=== PATIENT | female | born 1990 | race Caucasian/White ===

== ENCOUNTER 2016-12-28 08:37 | Emergency (ER) | payer MEDICAID, OTHER ==
[~2016-12-28] VITALS: Ht 162.6 cm; Wt 40.0 kg
[2016-12-28 08:38] VITALS: BP 111/78; PULSE 88; RESP 16; TEMP 97.9; O2SAT 98
--- NOTE | 2016-12-28 08:52 | PD ---
HPI . lower back pain since yesterday Chief Complaint: Injury Time Seen by Provider: 08:52 Travel History International Travel<30 days: No Contact w/Intl Traveler<30days: No Traveled to known affect area: No History of Present Illness HPI 26-year-old female here with complaints of lower back pain status post fall yesterday while [place] the beach. Patient says she was trying to walk the beach when she actually fell down and hit her lower back. She is now complaining of pain and the end of the T-spine early L spine. She says the pain is sharp/ aching and rated as 8/10. She has not tried any over the counter medications. She she denies any bowel or bladder dysfunction. She has no saddle anesthesia. She is accompanied by her significant other [facility] Past Medical History Medical History: Denies Significant Hx ?: Unknown LMP: 12/18/16 : 2 Para: 2 Miscarriage: 0 : 0 Social History Alcohol Use: Yes Tobacco Use: Yes (1 cig/daily) Substance Use: No Allergies-Medications (Allergen,Severity, Reaction): Coded Allergies: No Known Allergies (Verified , 09/27/13) Reported Meds & Prescriptions Reported Meds & Active Scripts Active Percocet (Oxycodone-Acetaminophen) 5-325 mg Tab 1-2 Tab PO Q6H PRN Review of Systems General / Constitutional: No: Fever Eyes: No: Visual changes HENT: No: Headaches Cardiovascular: No: Chest Pain or Discomfort Respiratory: No: Shortness of Breath Gastrointestinal: No: Abdominal Pain Genitourinary: No: Dysuria Musculoskeletal: Positive: Pain (low back pain) Skin: No Rash Neurologic: No: Weakness Psychiatric: No: Depression Endocrine: No: Polydipsia Hematologic/Lymphatic: No: Easy Bruising Physical Exam Narrative GENERAL: AAO x 3, no acute distress, Well-nourished, well-developed patient. SKIN: Warm and dry. No visible rashes or bruising. no visible bruising HEAD: Normocephalic and atraumatic. EYES: No scleral icterus. No injection or drainage. ENT: No nasal drainage noted. Mucous membranes pink. Airway patent. NECK: Supple, trachea midline. No JVD. CARDIOVASCULAR: Regular rate and rhythm without murmurs, gallops, or rubs. RESPIRATORY: Breath sounds equal bilaterally. No accessory muscle use. No rhonchi or rales. GASTROINTESTINAL: Abdomen soft, non-tender, nondistended. EXTREMITIES: No cyanosis or edema. SLR negative b/l BACK: No obvious deformity. No CVA tenderness. There is tenderness at the end of t spine and early l spine. No paraspinal tenderness. NEURO: CN II through XII grossly intact. Strength is normal bilaterally in the lower extremities. PSYCH: AAO x 3, normal affect. Data Data Last Documented VS Vital Signs Date Time Temp Pulse Resp B/P Pulse Ox O2 Delivery O2 Flow Rate FiO2 12/28/16 08:38 97.9 88 16 111/78 98 Room Air Orders Ketorolac Inj (Toradol Inj) (12/28/16 09:00) Spine, Thoracic-Ap/Lat/Sw(3vw) (12/28/16 08:54) [employer] Request For Service (12/28/16 10:11) Oxycodone-Acetamin 5-325 Mg (Percocet (12/28/16 10:15) MDM Medical Decision Making Medical Screen Exam Complete: Yes Emergency Medical Condition: Yes Medical Record Reviewed: Yes Differential Diagnosis Lumbago, spinal fracture, less likely cauda equina Narrative Course This is a 26-year-old female presenting status post fall now with pain in the end of the T-spine early L spine. There is some significant spinal process tenderness on examination. I will go ahead and check an x-ray to rule out any type of bony abnormality. Last Impressions Thoracic Spine X-Ray 12/28/16 0854 Signed Impressions: Service Date/Time: Wednesday, December 28, 2016 09:14 - CONCLUSION: L1 compression fracture. Mehran Herrera MD At 9:40 AM call was placed to interventional radiology to see if they would be able to perform a kyphoplasty. Otherwise patient will be discharged to [facility] brace and follow-up as an outpatient. discussed with Dr. Bharati Pereyra. He will determine the disposition. [id number]: spoke with Dr. Pandey; he recommends discharge and conservative management. I discussed with the patient and recommended outpatient f/u with her PCP. Patient verbalized understanding of instructions, questions were answered, and thanked me for their care. I advised them if their condition worsens, please return to the nearest emergency room for further care. Diagnosis Primary Impression: Compression fracture of lumbar vertebra Qualified Code: S32.000A - Compression fracture of lumbar vertebra, closed, initial encounter Patient Instructions: General Instructions, Vertebral Compression Fracture (ED) Additional Instructions: Please follow-up with your primary care provider for further workup and treatment. Please return to emergency department if your symptoms return or worsen. Follow up with your primary care provider. Take medications as prescribed. Med/Other Pt SpecificInfo: Prescription(s) given Scripts Oxycodone-Acetaminophen (Percocet)5-325 mg Tab1-2 Tab PO Q6H PRN (PAIN) #30 TAB Ref 0 Prov:Jun Pereyra MD 12/28/16 Disposition: 01 DISCHARGE HOME Condition: Stable Dafne Lucia December 28, 2016 08:52
[2016-12-28] MEDS ORDERED: KETOROLAC TROMETHAMINE 60 MG/2 ML (IM) VIAL IM ONE (09:00)
--- NOTE | 2016-12-28 09:18 | RADRPT ---
EXAM DATE/TIME: 12/28/2016 09:14 [place] COMPARISON: No previous studies available for comparison. INDICATIONS : Fell down stairs last night, pain mid-right upper back. MEDICAL HISTORY : None. SURGICAL HISTORY : None. ENCOUNTER: Initial ACUITY: 2 days PAIN SCORE: 9/10 LOCATION: Right thoracic spine. FINDINGS: Slight dextroscoliosis centered at T7. There is a mild superior endplate compression fracture of the L1 vertebral body level with mild loss of vertebral body height. Normal bone density.CONCLUSION: L1 compression fracture. Mehran Herrera MD on December 28, 2016 at 9:16 Board Certified Radiologist. This report was verified electronically.
[2016-12-28] MEDS ORDERED: oxyCODONE/ACETAMINOPHEN 5 MG/325 MG TAB PO ONE (10:15)
[2016-12-28] MEDS ORDERED: TRAM50TA PO (11:02)
[2016-12-28] MEDS ORDERED: PERC5TAB12 PO (11:21)
--- NOTE | 2016-12-28 11:21 | PD ---
Data Data Last Documented VS Vital Signs Date Time Temp Pulse Resp B/P Pulse Ox O2 Delivery O2 Flow Rate FiO2 12/28/16 08:38 97.9 88 16 111/78 98 Room Air Orders Ketorolac Inj (Toradol Inj) (12/28/16 09:00) Spine, Thoracic-Ap/Lat/Sw(3vw) (12/28/16 08:54) [employer] Request For Service (12/28/16 10:11) Oxycodone-Acetamin 5-325 Mg (Percocet (12/28/16 10:15) MDM Supervised Visit with VISHAL: Yes Narrative Course The history, exam, and medical decision-making in the associated mid-level provider note were completed with my assistance. I reviewed and agree with the findings presented. I attest that I had a [id number] encounter with the patient on the same day, and personally performed and documented my assessment and findings in the medical record. *My assessment and Findings: Is a 26 year-old woman presents emergent breath or fall. She is now one compression fracture minimal compression deformity. She'll need TLSO brace, pain medicine, outpatient follow-up. Diagnosis Primary Impression: Compression fracture of lumbar vertebra Qualified Code: S32.000A - Compression fracture of lumbar vertebra, closed, initial encounter Patient Instructions: General Instructions, Vertebral Compression Fracture (ED) Departure Forms: Tests/Procedures Additional Instruction: Please follow-up with your primary care provider for further workup and treatment. Please return to emergency department if your symptoms return or worsen. Follow up with your primary care provider. Take medications as prescribed. Scripts Oxycodone-Acetaminophen (Percocet)5-325 mg Tab1-2 Tab PO Q6H PRN (PAIN) #30 TAB Ref 0 Prov:Jun Pereyra MD 12/28/16 Disposition: 01 DISCHARGE HOME Condition: Stable Jun Pereyra MD December 28, 2016 11:21
== END 2016-12-28 11:32 | disposition home or self-care (01) ==
LOC: NEPD 08:37
DX: S32.000A Wedge compression fracture of unspecified lumbar vertebra, initial encounter for closed fracture (principal); W19.XXXA Unspecified fall, initial encounter; Y93.01 Activity, walking, marching and hiking; Y92.832 Beach as the place of occurrence of the external cause
CPT/HCPCS: 72072; 96372; 99284; J1885; L0200; L0484

== ENCOUNTER 2017-10-12 01:08 | Emergency (ER) | payer MEDICAID ==
[~2017-10-12 01:08] MED LIST: PRENMIS9 PO
--- NOTE | 2017-10-12 01:59 | PD ---
HPI Chief Complaint Back pain and UTI symptoms, blood noted in the urine Date Seen: Oct 12, 2017 Time Seen: 01:50 Travel History International Travel<30 Days: No Contact w/Intl Traveler<30Days: No Known Affected Area: No History of Present Illness HPI 27-year-old white female at 31 weeks who [facility] but still has only been a couple of times and has not been in a couple months who presents complaining of increasing back pain today and she noticed blood in her urine and other urinary symptoms such as discomfort frequency etc. she denies vaginal bleeding or leakage of fluid. However she is alberto on the monitor about every 3-4 minutes that she can feel but they are not extremely painful, heart rate tracing is reactive Weeks Gestation: 31 Para: 3 : 4 History Obstetric History Obstetric History 3 vaginal deliveries the earliest one was 36 weeks Social History Alcohol Use: No Tobacco Use: Yes Substance Abuse: No Allergies-Medications (Allergen,Severity, Reaction): Coded Allergies: No Known Allergies (Verified Adverse Reaction, Unknown, 08/14/17) Home Meds Active Scripts [id number]/Iron/Folic/Om3 ([facility]-Care Dha Essential Pack) 27 Mg Iron-1 Mg- 374 Mg Cmbpkgdrcp, 1 TAB PO DAILY, #30 BOTTLE 11 Refills Prov:Agnieszka Mckeon 06/12/17 Review of Systems General / Constitutional: No: Fever, Weight Gain, Chills, Other Eyes: No: Diploplia, Blurred Vision, Visual changes, Pain, Photophobia HENT: No: Headaches, Vertigo, Lightheadedness Cardiovascular: No: Irregular Rhythm, Chest Pain or Discomfort, Palpitations, Tachycardia, Syncope, Varicosities, Edema, Cyanosis Respiratory: No: Cough, Short of Breath, Other Gastrointestinal: No: Nausea, Vomiting, Diarrhea Genitourinary: Urgency, Frequency, Dysuria, Hematuria, No: Decreased Urinary Output, Oliguria Musculoskeletal: No: Limited ROM, Weakness, Cramping, Edema, Pain Skin: No Rash, No Itching, No Dryness, No Lumps, No Change in Pigmentation, No Change in Nails, No Alopecia, No Lesions Neurologic: No: Weakness, Dizziness, Syncope, Focal Abnormalities, Coordination Problem, Headache, Slurred Speech, Seizures Psychiatric: No: Depression, Suicidal Ideations, Homicidal Ideation Endocrine: No: Heat Intolerance, Cold Intolerance, Polydipsia, Polyuria, Other Physical Exam Narrative GENERAL: Well-nourished, well-developed patient. SKIN: Warm and dry. HEAD: Normocephalic and atraumatic. EYES: No scleral icterus. No injection or drainage. ENT: No nasal drainage noted. Mucous membranes pink. Airway patent. NECK: Supple, trachea midline. No JVD. CARDIOVASCULAR: Regular rate and rhythm without murmurs, gallops, or rubs. RESPIRATORY: Breath sounds equal bilaterally. No accessory muscle use. BREASTS: Bilateral exam showed no masses , no retractions, no nipple discharge. ABDOMEN/GI: Abdomen soft, non-tender, bowel sounds present, no rebound, no guarding ,+ CVAT on R Gravid to [30-] weeks size Fundal Height: [30-] GENITOURINARY: External Genitalia: intact and normal in appearance BUS glands: [-] Cervix: [-post] Dilatation: [0-] Effacement: [-0] Station: [-3] Membranes: [intact ] Uterine Contractions: [-q 3 min] FHT's: Category: [1-] Baseline: [133-] Reactive: [-R] Variability: [mod-] Decels: [-none] EXTREMITIES: No cyanosis or edema. BACK: Nontender without obvious deformity. + CVA tenderness.on right none on left NEUROLOGICAL: Awake and alert. Motor and sensory grossly within normal limits. Five out of 5 muscle strength in all muscle groups. Normal speech. Data Data Orders Orders Vital Signs (Adult) .ON ADMISSION (10/12/17 01:48) ^ Labor Status (10/12/17 01:48) Urinalysis - C+S If Indicated (10/12/17 01:48) ^ Non Stress Test (10/12/17 01:48) Fibronectin (10/12/17 01:48) Ob/Psych Drug Screen, Urine (10/12/17 01:48) Labs Urinalysis on OB ED shows large leukocyte and large blood and urine was sent down FFN is pending at this time MDM Interpretation(s) Patient is 27-year-old white female at 31 weeks who presents complaining of right back pain and blood in her urine another urinary tract symptoms, her urinalysis here on labor and delivery shows large blood and leukocytes, she has significant right CVA tenderness, not on the left, she is afebrile at time of admission. States his pain is been developing over the last 1-2 days the blood in her urine she noticed a few days ago got better and then this come back today , heart rate tracing is reactive and she is alberto every 3 minutes. fibronectin done is pending at this time the cervix is closed posterior and thick Plan Plan for this patient is IV antibiotics for likely pyelonephritis, IV pain medication, monitoring and check of lab and urine culture as well as her right fibronectin and would tocolyse appropriately. Once again this plan is well thought out and was beginning to be implemented when the patient decided to leave AMA because she had to go take care of her kids and get her telephone so she signed AMA papers and left we encouraged her to come back and get therapy or that she could possibly get much more ill with fever labor delivery and even sepsis potentially life-threatening she heard that description and left anyway but says she will come back Diagnosis Diagnosis: Primary Impression: Pyelonephritis affecting in third trimester Additional Impression: Threatened premature labor in third trimester Disposition: 07 AGAINST MEDICAL ADVICE Kelton Tavares II, MD Oct 12, 2017 01:59
[2017-10-12 02:24] LABS: BACTERIA, URINE RARE /hpf; BILIRUBIN, URINE NEG (NEG); BLOOD, URINE MOD (NEG); GLUCOSE,URINE NEG (NEG); HYALINE CAST, URINE 2 /lpf (RARE); KETONE, URINE NEG (NEG); MUCUS URINE FEW /lpf (OCC); NITRITE,URINE NEG (NEG); PH, URINE 6.5 (5.0-8.5); SQUAMOUS EPITHELIAL CELL URINE <1 /hpf (0-5); URINE COLOR LIGHT-YELLOW (YELLW/STRAW); URINE LEUKOCYTE ESTERASE LARGE (NEG); WHITE BLOOD CELL CLUMPS MANY
[2017-10-13] MEDS ORDERED: NITR1CAP36 PO ×3 (12:14→12:30)
== END 2017-10-12 02:00 | disposition left against medical advice (07) ==
LOC: HOBED 01:08
DX: O23.03 Infections of kidney in pregnancy, third trimester (principal); B96.20 Unspecified Escherichia coli [E. coli] as the cause of diseases classified elsewhere; O47.03 False labor before 37 completed weeks of gestation, third trimester; O99.333 Smoking (tobacco) complicating pregnancy, third trimester; Z3A.31 31 weeks gestation of pregnancy; Z53.20 Procedure and treatment not carried out because of patient's decision for unspecified reasons
CPT/HCPCS: 80307; 81001; 82731; 87077; 87086; 87186; 99283; G0481

== ENCOUNTER 2017-10-12 10:33 | Inpatient (IN) | payer MEDICAID ==
[~2017-10-12] VITALS: Ht 162.6 cm; Wt 52.2 kg
--- NOTE | 2017-10-12 11:21 | PD ---
HPI Travel History International Travel<30 Days: No Contact w/Intl Traveler<30Days: No History of Present Illness HPI Patient is a 27-year-old at 31/0 who presents today for back pain. She came to the ED approximately 10 hours prior, was diagnosed with a likely pyelonephritis, and left AMA prior to treatment because she did not have her phone and needed to go home to her children. She states that she continues to have back pain at this time, however is improved from yesterday. She notes that her urine is significantly darker today, and has an abnormal smell, however she has had nothing to drink today. She reports that yesterday she had andrew blood in her urine, however she believes that she cannot tell if there is blood in her urine today. Dysuria has improved. Increase frequency. Reports that she had contractions yesterday, which were minor, today she reports that they resolved after she went home. Reports normal movement. Denies large gushes of fluid, discharge of abnormal color/smell, bloody discharge. Denies nausea, vomiting, fever, chills, chest pain, shortness of breath, headache, change in vision. No other complaints today. Weeks Gestation: 31 Para: 3 : 4 Miscarriage: 0 : 0 History Past Medical History Medical History: Denies Significant Hx Past Surgical History Surgical History: No Previous Surgery Family History Family History: Negative Social History Alcohol Use: No Tobacco Use: Yes (1/4 packs per day) Substance Abuse: No Allergies-Medications (Allergen,Severity, Reaction): Coded Allergies: No Known Allergies (Verified Adverse Reaction, Unknown, 08/14/17) Home Meds Active Scripts [id number]/Iron/Folic/Om3 ([facility]-Care Dha Essential Pack) 27 Mg Iron-1 Mg- 374 Mg Cmbpkgdrcp, 1 TAB PO DAILY, #30 BOTTLE 11 Refills Prov:Agnieszka Mckeon 06/12/17 Review of Systems General / Constitutional: No: Fever, Chills Eyes: No: Diploplia, Blurred Vision, Visual changes HENT: No: Headaches, Vertigo, Lightheadedness Cardiovascular: No: Irregular Rhythm, Chest Pain or Discomfort, Palpitations Respiratory: No: Cough, Short of Breath, Wheezing Gastrointestinal: No: Nausea, Vomiting, Diarrhea, Abdominal Pain, Hematemesis, Hematochezia, Constipation, Indigestion Genitourinary: Hematuria, No: Urgency, Frequency, Dysuria Musculoskeletal: No: Limited ROM, Weakness Skin: No Rash, No Itching, No Dryness Neurologic: No: Weakness, Dizziness Psychiatric: No: Anxiety, Depression Endocrine: No: Polydipsia, Polyuria Hematologic/Lymphatic: No Easy Bruising, No Lymph Node Enlargement Physical Exam Narrative GENERAL: Well-nourished, well-developed patient. SKIN: Warm and dry. HEAD: Normocephalic and atraumatic. EYES: No scleral icterus. No injection or drainage. ENT: No nasal drainage noted. Mucous membranes pink. Airway patent. NECK: Supple, trachea midline. No JVD. CARDIOVASCULAR: Regular rate and rhythm without murmurs, gallops, or rubs. RESPIRATORY: Breath sounds equal bilaterally. No accessory muscle use. ABDOMEN/GI: Abdomen soft, non-tender, bowel sounds present, no rebound, no guarding GENITOURINARY: External Genitalia: intact and normal in appearance FHT's: Category: 1 Baseline: 140 Reactive: Yes Variability: Moderate Decels: None EXTREMITIES: No cyanosis or edema. BACK: Nontender without obvious deformity. Mild right sided CVA tenderness NEUROLOGICAL: Awake and alert. Motor and sensory grossly within normal limits. Five out of 5 muscle strength in all muscle groups. Normal speech. Data Data Vital Signs Reviewed: Yes MDM Plan Patient is a 27-year-old at 31/0 who presents complaining of right back pain, blood in urine. She had left earlier this morning against medical advice prior to treatment for a suspected pyelonephritis. Reports that her urine is currently darker, decreased blood in it, back pain is improved from yesterday. Contractions last night, resolved since then. UA from previous visit, 10 hours ago this morning shows 100 urine protein, moderate occult blood, large LE. FFN negative. Pyelonephritis -Admit for IV antibiotic administration -Rocephin 1 g every 24 hours -Currently afebrile, monitor fever status -IV hydration, continue p.o. hydration -FHT category 1, reassuring -Follow-up CBC, BMP DW Dr. Chu Diagnosis Diagnosis: Primary Impression: Pyelonephritis affecting in third trimester Mario Felder MD R1 Oct 12, 2017 11:21
[2017-10-12] MEDS: SODIUM CHLOR 0.9% 1000 ML INJ 1,000 ML IV SCH ×2 (11:49→18:33)
--- NOTE | 2017-10-12 12:11 | HHI.HP ---
History & Physical H&P HPI HPI Travel History International Travel<30 Days: No Contact w/Intl Traveler<30Days: No History of Present Illness HPI Patient is a 27-year-old at 31/0 who presents today for back pain. She came to the ED approximately 10 hours prior, was diagnosed with a likely pyelonephritis, and left AMA prior to treatment because she did not have her phone and needed to go home to her children. She states that she continues to have back pain at this time, however is improved from yesterday. She notes that her urine is significantly darker today, and has an abnormal smell, however she has had nothing to drink today. She reports that yesterday she had andrew blood in her urine, however she believes that she cannot tell if there is blood in her urine today. Dysuria has improved. Increase frequency. Reports that she had contractions yesterday, which were minor, today she reports that they resolved after she went home. Reports normal movement. Denies large gushes of fluid, discharge of abnormal color/smell, bloody discharge. Denies nausea, vomiting, fever, chills, chest pain, shortness of breath, headache, change in vision. No other complaints today. Weeks Gestation: 31 Para: 3 : 4 Miscarriage: 0 : 0 History (Limited) History Past Medical History Medical History: Denies Significant Hx Past Surgical History Surgical History: No Previous Surgery Family History Family History: Negative Social History Alcohol Use: No Tobacco Use: Yes (1/4 packs per day) Substance Abuse: No Allergies-Medications Allergies-Medications (Allergen,Severity, Reaction): Coded Allergies: No Known Allergies (Verified Adverse Reaction, Unknown, 08/14/17) Home Meds Active Scripts [id number]/Iron/Folic/Om3 ([facility]-Care Dha Essential Pack) 27 Mg Iron-1 Mg- 374 Mg Cmbpkgdrcp, 1 TAB PO DAILY, #30 BOTTLE 11 Refills Prov:Agnieszka Mckeon 06/12/17 [place] Review of Systems General / Constitutional: No: Fever, Chills Eyes: No: Diploplia, Blurred Vision, Visual changes HENT: No: Headaches, Vertigo, Lightheadedness Cardiovascular: No: Irregular Rhythm, Chest Pain or Discomfort, Palpitations Respiratory: No: Cough, Short of Breath, Wheezing Gastrointestinal: No: Nausea, Vomiting, Diarrhea, Abdominal Pain, Hematemesis, Hematochezia, Constipation, Indigestion Genitourinary: Hematuria, No: Urgency, Frequency, Dysuria Musculoskeletal: No: Limited ROM, Weakness Skin: No Rash, No Itching, No Dryness Neurologic: No: Weakness, Dizziness Psychiatric: No: Anxiety, Depression Endocrine: No: Polydipsia, Polyuria Hematologic/Lymphatic: No Easy Bruising, No Lymph Node Enlargement Physical Exam Physical Exam Narrative GENERAL: Well-nourished, well-developed patient. SKIN: Warm and dry. HEAD: Normocephalic and atraumatic. EYES: No scleral icterus. No injection or drainage. ENT: No nasal drainage noted. Mucous membranes pink. Airway patent. NECK: Supple, trachea midline. No JVD. CARDIOVASCULAR: Regular rate and rhythm without murmurs, gallops, or rubs. RESPIRATORY: Breath sounds equal bilaterally. No accessory muscle use. ABDOMEN/GI: Abdomen soft, non-tender, bowel sounds present, no rebound, no guarding GENITOURINARY: External Genitalia: intact and normal in appearance FHT's: Category: 1 Baseline: 140 Reactive: Yes Variability: Moderate Decels: None EXTREMITIES: No cyanosis or edema. BACK: Nontender without obvious deformity. Mild right sided CVA tenderness NEUROLOGICAL: Awake and alert. Motor and sensory grossly within normal limits. Five out of 5 muscle strength in all muscle groups. Normal speech. Data Data Data Vital Signs Reviewed: Yes [facility] MDM Plan Patient is a 27-year-old at 31/0 who presents complaining of right back pain, blood in urine. She had left earlier this morning against medical advice prior to treatment for a suspected pyelonephritis. Reports that her urine is currently darker, decreased blood in it, back pain is improved from yesterday. Contractions last night, resolved since then. UA from previous visit, 10 hours ago this morning shows 100 urine protein, moderate occult blood, large LE. FFN negative. Pyelonephritis -Admit for IV antibiotic administration -Rocephin 1 g every 24 hours -Currently afebrile, monitor fever status -IV hydration, continue p.o. hydration -FHT category 1, reassuring -Follow-up CBC, BMP DW Dr. Chu Diagnosis Diagnosis: Primary Impression: Pyelonephritis affecting in third trimester Mario Felder MD R1 Oct 12, 2017 12:10
[2017-10-12] MEDS: cefTRIAXone INJ 1,000 MG in SODIUM CHLORIDE 0.9% INJ 100 ML IV SCH (12:43)
[2017-10-12 13:16] LABS: AUTOMATED NEUTROPHIL # 8.9 TH/MM3 (1.8-7.7); BASOPHIL % 0.3 % (0.0-2.0); EOSINOPHIL # 0.1 TH/MM3 (0-0.4); EOSINOPHIL % 0.7 % (0.0-4.0); HEMATOCRIT 32.2 % (35.0-46.0); HEMOGLOBIN 11.1 GM/DL (11.6-15.3); LYMPH % 17.1 % (9.0-44.0); LYMPHOCYTE # 2.1 TH/MM3 (1.0-4.8); MEAN CELL VOLUME 83.1 FL (80.0-100.0); MEAN CORPUSCULAR HEMOGLOBIN 28.7 PG (27.0-34.0); MEAN CORPUSCULAR HGB CONC 34.6 % (32.0-36.0); MEAN PLATELET VOLUME 7.1 FL (7.0-11.0); MONO % 8.2 % (0.0-8.0); NEUT % 73.7 % (16.0-70.0); PLATELET COUNT 274 TH/MM3 (150-450); RED BLOOD COUNT 3.88 MIL/MM3 (4.00-5.30); RED CELL DISTRIBUTION WIDTH 13.4 % (11.6-17.2)
[2017-10-12 14:04] LABS: BICARBONATE 25.5 MEQ/L (21.0-32.0); CALCIUM 8.1 MG/DL (8.5-10.1); CREATININE 0.51 MG/DL (0.50-1.00)
[2017-10-12 22:40] VITALS: RESP 16
[2017-10-12 22:42] VITALS: BP 93/50; PULSE 85
[2017-10-13 04:32] VITALS: TEMP 98
[2017-10-13 04:35] VITALS: BP 83/44; PULSE 71
[2017-10-13 04:36] VITALS: BP 85/50; PULSE 71
[2017-10-13] MEDS: SODIUM CHLOR 0.9% 1000 ML INJ 1,000 ML IV SCH (05:55)
[2017-10-13 06:16] LABS: AUTOMATED NEUTROPHIL # 4.9 TH/MM3 (1.8-7.7); BASOPHIL % 0.3 % (0.0-2.0); EOSINOPHIL # 0.1 TH/MM3 (0-0.4); EOSINOPHIL % 1.8 % (0.0-4.0); HEMATOCRIT 28.6 % (35.0-46.0); LYMPH % 26.4 % (9.0-44.0); LYMPHOCYTE # 2.1 TH/MM3 (1.0-4.8); MEAN CELL VOLUME 83.1 FL (80.0-100.0); MEAN CORPUSCULAR HEMOGLOBIN 29.1 PG (27.0-34.0); MEAN CORPUSCULAR HGB CONC 35.1 % (32.0-36.0); MEAN PLATELET VOLUME 6.8 FL (7.0-11.0); MONOCYTE # 0.9 TH/MM3 (0-0.9); NEUT % 60.5 % (16.0-70.0); PLATELET COUNT 246 TH/MM3 (150-450); RED BLOOD COUNT 3.44 MIL/MM3 (4.00-5.30); RED CELL DISTRIBUTION WIDTH 13.4 % (11.6-17.2)
[2017-10-13 06:32] LABS: BICARBONATE 23.4 MEQ/L (21.0-32.0); CALCIUM 8.1 MG/DL (8.5-10.1); CREATININE 0.44 MG/DL (0.50-1.00)
[2017-10-13 08:39] VITALS: BP 90/56; PULSE 70
--- NOTE | 2017-10-13 08:58 | PD.OB.ANTE ---
Subjective Interval History Seen and examined this morning. Patient reports she is feeling significantly better today. She notes decreased back pain, decreased urinary symptoms. No nausea, vomiting, fever or chills overnight. No contractions today. No new discharge or large gushes of fluid. No other complaints today. Objective Lab & Micro Results Test 10/12/17 12:07 10/12/17 13:25 10/13/17 04:25 White Blood Count 12.0 TH/MM3 8.0 TH/MM3 Red Blood Count 3.88 MIL/MM3 3.44 MIL/MM3 Hemoglobin 11.1 GM/DL 10.0 GM/DL Hematocrit 32.2 % 28.6 % Mean Corpuscular Volume 83.1 FL 83.1 FL Mean Corpuscular Hemoglobin 28.7 PG 29.1 PG Mean Corpuscular Hemoglobin Concent 34.6 % 35.1 % Red Cell Distribution Width 13.4 % 13.4 % Platelet Count 274 TH/MM3 246 TH/MM3 Mean Platelet Volume 7.1 FL 6.8 FL Neutrophils (%) (Auto) 73.7 % 60.5 % Lymphocytes (%) (Auto) 17.1 % 26.4 % Monocytes (%) (Auto) 8.2 % 11.0 % Eosinophils (%) (Auto) 0.7 % 1.8 % Basophils (%) (Auto) 0.3 % 0.3 % Neutrophils # (Auto) 8.9 TH/MM3 4.9 TH/MM3 Lymphocytes # (Auto) 2.1 TH/MM3 2.1 TH/MM3 Monocytes # (Auto) 1.0 TH/MM3 0.9 TH/MM3 Eosinophils # (Auto) 0.1 TH/MM3 0.1 TH/MM3 Basophils # (Auto) 0.0 TH/MM3 0.0 TH/MM3 CBC Comment DIFF FINAL DIFF FINAL Differential Comment Blood Urea Nitrogen 7 MG/DL 7 MG/DL Creatinine 0.51 MG/DL 0.44 MG/DL Random Glucose 126 MG/DL 77 MG/DL Calcium Level 8.1 MG/DL 8.1 MG/DL Sodium Level 137 MEQ/L 142 MEQ/L Potassium Level 3.1 MEQ/L 4.0 MEQ/L Chloride Level 104 MEQ/L 111 MEQ/L Carbon Dioxide Level 25.5 MEQ/L 23.4 MEQ/L Anion Gap 8 MEQ/L 8 MEQ/L Estimat Glomerular Filtration Rate 143 ML/MIN 169 ML/MIN Physical Exam GENERAL: Well-nourished, well-developed patient. CARDIOVASCULAR: Regular rate and rhythm without murmurs, gallops, or rubs. RESPIRATORY: Breath sounds equal bilaterally. No accessory muscle use. ABDOMEN/GI: Abdomen soft, non-tender. GENITOURINARY: FHT's: Category: 1 Baseline: 140 Reactive: Yes Variability: Moderate Decels: None EXTREMITIES: No cyanosis or edema, non-tender, without signs of DVT. Assessment and Plan Assessment and Plan Patient is a 27-year-old at 06/09 who presented complaining of right back pain, blood in urine. She had left earlier prior to admission against medical advice prior to treatment for a suspected pyelonephritis. symptoms improving. Contractions reported resolved. UA shows 100 urine protein, moderate occult blood, large LE. FFN negative. Pyelonephritis -Rocephin 1 g every 24 hours -Currently afebrile, monitor fever status -IV hydration, continue p.o. hydration -FHT category 1, reassuring -When discharged will be prescribed Macrobid daily for prophylaxis DW Dr. Vlad Felder,Mario Barba MD R1 Oct 13, 2017 08:58
[2017-10-13 09:00] VITALS: RESP 16; TEMP 97.6
[2017-10-13] MEDS ORDERED: NITR1CAP36 PO ×3 (12:14→12:30)
--- NOTE | 2017-10-13 12:26 | HHI.DCPOC ---
Discharge Care Plan Diagnosis: (1) Pyelonephritis affecting in third trimester Report Symptoms to Your Doctor -Temperature above 100.5 degrees -Redness, of incision or excessive or foul smelling drainage -Unusual pain or calf pain -Increased vaginal bleeding -Painful or difficulty urinating -Feelings of extreme sadness or anxiety after 2 weeks Goals to Promote Your Health * To prevent worsening of your condition and complications * To maintain your health at the optimal level Directions to Meet Your Goals Take your medications as prescribed Follow your dietary instruction Follow activity as directed Ensure plenty of rest for recovery Drink fluids for hydration Keep your appointments as scheduled Take your immunizations and boosters as scheduled If your symptoms worsen call your PCP, if no PCP go to Urgent Care Center or Emergency Room Smoking is Dangerous to Your Health. Avoid second hand smoke Call the 24-hour crisis hotline for domestic abuse at Farshad Lam MD R2 Oct 13, 2017 12:26
[2017-10-13] MEDS: cefTRIAXone INJ 1,000 MG in SODIUM CHLORIDE 0.9% INJ 100 ML IV SCH (12:31)
== END 2017-10-13 14:24 | disposition home or self-care (01) | DRG 781 ==
LOC: HOBED 10:33 → H2EA 11:33
PROVIDERS: ADMIT Obstetrics & Gynecology; ATTEND Obstetrics & Gynecology
DX: O23.03 Infections of kidney in pregnancy, third trimester (principal); O99.333 Smoking (tobacco) complicating pregnancy, third trimester; N12 Tubulo-interstitial nephritis, not specified as acute or chronic; Z3A.31 31 weeks gestation of pregnancy
CPT/HCPCS: 59025; 80048; 80307; 81001; 82731; 85025; 87077; 87086; 87186; G0481; J0696; J7030

== ENCOUNTER 2017-12-21 08:08 | Inpatient (IN) | payer MEDICAID ==
[~2017-12-21] VITALS: Ht 162.6 cm; Wt 58.5 kg
[2017-12-21] VITALS (61 sets, daily range): BP systolic 74–143; BP diastolic 45–98; PULSE 46–140; RESP 17–18; TEMP 97.5–97.9
[~2017-12-21 08:08] MED LIST changes: +NITR1CAP36 PO
[2017-12-21] MEDS: LACTATED RINGER'S 1000 ML INJ 1,000 ML IV SCH ×2 (09:45→18:01)
[2017-12-21] MEDS ORDERED: LACTATED RINGER'S 1000 ML INJ 1,000 ML IV PRN (10:01)
[2017-12-21 10:14] LABS: BASOPHIL % 0.3 % (0.0-2.0); EOSINOPHIL # 0.1 TH/MM3 (0-0.4); EOSINOPHIL % 1.3 % (0.0-4.0); HEMATOCRIT 31.5 % (35.0-46.0); HEMOGLOBIN 10.5 GM/DL (11.6-15.3); LYMPH % 22.7 % (9.0-44.0); MEAN CELL VOLUME 78.4 FL (80.0-100.0); MEAN CORPUSCULAR HGB CONC 33.2 % (32.0-36.0); MEAN PLATELET VOLUME 7.7 FL (7.0-11.0); MONO % 7.9 % (0.0-8.0); MONOCYTE # 0.7 TH/MM3 (0-0.9); NEUT % 67.8 % (16.0-70.0); PLATELET COUNT 273 TH/MM3 (150-450); RED BLOOD COUNT 4.02 MIL/MM3 (4.00-5.30); RED CELL DISTRIBUTION WIDTH 14.4 % (11.6-17.2); WHITE BLOOD COUNT 8.8 TH/MM3 (4.0-11.0)
[2017-12-21] MEDS ORDERED: OXYTOCIN 30 UNITS-500ML PREMIX 500 ML IV ONE (10:15)
[2017-12-21] MEDS ORDERED: LIDOCAINE HCL 1% 50 ML VIAL I-DERMAL PRN (10:15)
[2017-12-21] MEDS ORDERED: SODIUM CHLORID 0.9% 500 ML INJ 500 ML IV PRN (10:15)
[2017-12-21] MEDS ORDERED: LIDOCAINE HCL 1% 50 ML VIAL INFIL PRN (10:15)
[2017-12-21] MEDS ORDERED: OXYTOCIN 30 UNITS-500ML PREMIX 500 ML IV PRN (10:15)
[2017-12-21] MEDS ORDERED: MINERAL OIL 10 ML VIAL TOPICAL PRN (10:15)
[2017-12-21] MEDS ORDERED: CITRIC ACID-SODIUM CITRATE LIQ 30 ML UDC PO SCH (10:15)
[2017-12-21] MEDS ORDERED: SODIUM CHLOR 0.9% 1000 ML INJ 1,000 ML IV PRN (10:21)
[2017-12-21 10:22] LABS: BACTERIA, URINE MOD /hpf; BILIRUBIN, URINE NEG (NEG); BLOOD, URINE NEG (NEG); GLUCOSE,URINE NEG (NEG); KETONE, URINE NEG (NEG); MUCUS URINE FEW /lpf (OCC); NITRITE,URINE NEG (NEG); SQUAMOUS EPITHELIAL CELL URINE 15 /hpf (0-5); URINE COLOR YELLOW (YELLW/STRAW); URINE LEUKOCYTE ESTERASE LARGE (NEG)
--- NOTE | 2017-12-21 10:40 | HHI.HP ---
HPI Travel History International Travel<30 Days: No Contact w/Intl Traveler<30Days: No History of Present Illness HPI Patient is a 27 yo F at 40/6 weeks gestation who presented to OB triage for a scheduled induction. Denies LOF, vaginal bleeding. Endorses movement and mild on and off contractions. Pt is GBS negative. Denies CP, SOB, N/V or LE swelling. Weeks Gestation: 40 Para: 3 : 4 Miscarriage: 0 : 0 History Past Medical History Medical History: Denies Significant Hx Obstetric History Obstetric History SVDx3, no complications with prior pregnancies. Wt of prior infants were between 6-7lbs Pt reports during last it took about 6hours for to be ready to deliver. No complications with current Denies miscarriages or abortions Past Surgical History Surgical History: No Previous Surgery Family History Family History: Negative Social History Alcohol Use: No Tobacco Use: Yes (5-7 cig/per day during , h/o of smoking since age of 10yo) Substance Abuse: No Allergies-Medications (Allergen,Severity, Reaction): Coded Allergies: No Known Allergies (Verified Adverse Reaction, Unknown, 12/21/17) Home Meds Active Scripts [id number]/Iron/Folic/Om3 (Bal-Care Dha Essential Pack) 27 Mg Iron-1 Mg- 374 Mg Cmbpkgdrcp, 1 TAB PO DAILY, #30 BOTTLE 11 Refills Prov:Agnieszka Mckeon 06/12/17 Discontinued Scripts Nitrofurantoin Macrocrystal (Nitrofurantoin Macrocrystal) 100 Mg Cap, 100 MG PO BID for Infection, #79 CAP Patient to take one capsule twice a day for 9 days. Then once each night until completion of . Prov:Farshad Lam MD R2 10/13/17 Narrative Medication no medications Review of Systems Except as stated in HPI: all other systems reviewed are Neg (Per HPI) Physical Exam Narrative GENERAL: Well-nourished, well-developed patient. SKIN: Warm and dry. HEAD: Normocephalic and atraumatic. EYES: No scleral icterus. No injection or drainage. ENT: No nasal drainage noted. Mucous membranes pink. Airway patent. NECK: Supple, trachea midline. No JVD. CARDIOVASCULAR: Regular rate and rhythm without murmurs, gallops, or rubs. RESPIRATORY: Breath sounds equal bilaterally. No accessory muscle use. ABDOMEN/GI: Abdomen soft, non-tender, bowel sounds present, no rebound, no guarding Gravid to 40 weeks size GENITOURINARY: External Genitalia: intact and normal in appearance Cervix: posterior Dilatation: 3 Effacement: 50 Station: -2 Membranes: intact Uterine Contractions: scattered FHT's: Category: 1 Baseline: 140 Reactive: yes Variability:mod Decels: none EXTREMITIES: No cyanosis or edema. BACK: Nontender without obvious deformity. No CVA tenderness. NEUROLOGICAL: Awake and alert. Motor and sensory grossly within normal limits. Five out of 5 muscle strength in all muscle groups. Normal speech. Caprini VTE Risk Assessment Caprini VTE Risk Assessment: No/Low Risk (score <= 1) Caprini Risk Assessment Model Point Value = 1 Point Value = 2 Point Value = 3 Point Value = 5 Age 41-60 Minor surgery BMI > 25 kg/m2 Swollen legs Varicose veins or History of unexplained or recurrent spontaneous Oral contraceptives or hormone replacement Sepsis (< 1 month) Serious lung disease, including pneumonia (< 1 month) Abnormal pulmonary function Acute myocardial infarction Congestive heart failure (< 1 month) History of inflammatory bowel disease Medical patient at bed rest Age 61-74 Arthroscopic surgery Major open surgery (> 45 min) Laparoscopic surgery (> 45 min) Malignancy Confined to bed (> 72 hours) Immobilizing plaster cast Central venous access Age >= 75 History of VTE Family history of VTE Factor V Leiden Prothrombin [id number] Lupus anticoagulant Anticardiolipin antibodies Elevated serum homocysteine Heparin-induced thrombocytopenia Other congenital or acquired thrombophilia Stroke (< 1 month) Elective arthroplasty Hip, pelvis, or leg fracture Acute spinal cord injury (< 1 month) Prophylaxis Regimen Total Risk Factor Score Risk Level Prophylaxis Regimen 0-1 Low Early ambulation 2 Moderate Order ONE of the following: *Sequential Compression Device (SCD) *Heparin 5000 units SQ BID 3-4 Higher Order ONE of the following medications: *Heparin 5000 units SQ TID *Enoxaparin/Lovenox 40 mg SQ daily (WT < 150 kg, CrCl > 30 mL/min) *Enoxaparin/Lovenox 30 mg SQ daily (WT < 150 kg, CrCl > 10-29 mL/min) *Enoxaparin/Lovenox 30 mg SQ BID (WT < 150 kg, CrCl > 30 mL/min) AND/OR *Sequential Compression Device (SCD) 5 or more Highest Order ONE of the following medications: *Heparin 5000 units SQ TID (Preferred with Epidurals) *Enoxaparin/Lovenox 40 mg SQ daily (WT < 150 kg, CrCl > 30 mL/min) *Enoxaparin/Lovenox 30 mg SQ daily (WT < 150 kg, CrCl > 10-29 mL/min) *Enoxaparin/Lovenox 30 mg SQ BID (WT < 150 kg, CrCl > 30 mL/min) AND *Sequential Compression Device (SCD) Data Data Vital Signs Reviewed: Yes Orders Orders Admit To Inpatient (12/21/17 ) Vital Signs (Adult) .Per protocol (12/21/17 10:01) Heart (12/21/17 10:01) Amnioinfusion (12/21/17 10:01) Urinary Catheter Management .ONCE (12/21/17 10:01) Diet Liquid (12/21/17 Lunch) Lactated Ringer's 1000 Ml Inj (Lr 1000 M (12/21/17 10:01) Lactated Ringer's 1000 Ml Inj (Lr 1000 M (12/21/17 10:01) Sodium Chlorid 0.9% 500 Ml Inj (Ns 500 M (12/21/17 10:15) Sodium Chlor 0.9% 1000 Ml Inj (Ns 1000 M (12/21/17 10:21) Lidocaine 1% Inj (50 Ml) (Xylocaine 1% I (12/21/17 10:15) Citric Acid-Sodium Citrate Liq (Bicitra (12/21/17 10:15) Fentanyl Inj (Fentanyl Inj) (12/21/17 10:15) Fentanyl Inj (Fentanyl Inj) (12/21/17 10:15) Complete Blood Count With Diff (12/21/17 10:01) Hold Clot (12/21/17 10:01) Abo/Rh Blood Type (12/21/17 10:01) Urinalysis - C+S If Indicated (12/21/17 10:01) Ob/Psych Drug Screen, Urine (12/21/17 10:01) Resp Oxygen Non Rebreathe Mask (12/21/17 ) ^ Epidural / Intrathecal Infus (12/21/17 10:01) Oxytocin 30 Units-500ml Premix (Pitocin (12/21/17 10:15) Lidocaine 1% Inj (50 Ml) (Xylocaine 1% I (12/21/17 10:15) Light Mineral Oil (Muri-Lube Oil) (12/21/17 10:15) Inpatient Certification (12/21/17 ) Specimen To Be Collected PRN (12/21/17 10:01) Specimen To Be Collected PRN (12/21/17 10:01) ^ Non Stress Test (12/21/17 10:01) Response To Medication .Post New Med Administration, Reaction (12/21/17 10:01) ^ Discontinue Medication (12/21/17 10:01) Oxytocin 30 Units-500ml Premix (Pitocin (12/21/17 10:15) Urine Culture (12/21/17 08:14) Group B Strep: Negative Labs Laboratory Tests Test 12/21/17 08:14 12/21/17 08:46 Urine Color YELLOW Urine Turbidity HAZY Urine pH 6.0 Urine Specific [place] 1.025 Urine Protein TRACE Urine Glucose (UA) NEG Urine Ketones NEG Urine Occult Blood NEG Urine Nitrite NEG Urine Bilirubin NEG Urine Urobilinogen LESS THAN 2.0 Urine Leukocyte Esterase LARGE Urine RBC 1 Urine WBC 9 Urine Squamous Epithelial Cells 15 Urine Bacteria MOD Urine Mucus FEW Microscopic Urinalysis Comment CULTURE INDICATED White Blood Count 8.8 Red Blood Count 4.02 Hemoglobin 10.5 Hematocrit 31.5 Mean Corpuscular Volume 78.4 Mean Corpuscular Hemoglobin 26.0 Mean Corpuscular Hemoglobin Concent 33.2 Red Cell Distribution Width 14.4 Platelet Count 273 Mean Platelet Volume 7.7 Neutrophils (%) (Auto) 67.8 Lymphocytes (%) (Auto) 22.7 Monocytes (%) (Auto) 7.9 Eosinophils (%) (Auto) 1.3 Basophils (%) (Auto) 0.3 Neutrophils # (Auto) 6.0 Lymphocytes # (Auto) 2.0 Monocytes # (Auto) 0.7 Eosinophils # (Auto) 0.1 Basophils # (Auto) 0.0 CBC Comment DIFF FINAL Differential Comment Date/Time Source Procedure Growth Status 12/21/17 08:14 Urine Clean Catch Urine Culture Pending Received Assessment/Plan Problem List: (1) 40 weeks gestation of ICD Codes: Z3A.40 - 40 weeks gestation of Plan: Patient is a 27 yo F at 40/6 weeks gestation who presented to OB triage for a scheduled induction. IUP at 40/6 wks 1. admit for scheduled induction of labor with pitocin 2. pitocin started at 2:2:30 3. clear liquid diet 4. category 1, NST reassuring 5. continue to monitor labor progression and vs DW Dr. Marcelo (2) Elective induction of labor planned Plan: see plan above Saúl Bradshaw MD, R1 December 21, 2017 10:40
[2017-12-21] MEDS ORDERED: MEASLES, MUMPS, RUBELLA VACCINE 0.5 ML VIAL SQ ONE (16:00)
[2017-12-21] MEDS ORDERED: DIPHTH/TETANUS/ACEL PERTUSSIS (BOOSTER) 0.5 ML VIAL/PFS IM ONE (16:00)
[2017-12-21] MEDS ORDERED: fentaNYL 2MCG-BUPIV 0.125% INJ 100 ML ONE (16:01)
[2017-12-21] MEDS ORDERED: LIDOCAINE 1.5%/EPINEPHrine 1:200,000 PF 5 ML AMP ONE (16:16)
[2017-12-21] MEDS ORDERED: fentaNYL 2MCG-BUPIV 0.125% 100 ML EPIDURAL PRN (17:15)
[2017-12-21] MEDS ORDERED: ePHEDrine/NS 25 MG/5 ML SYRINGE IV PUSH PRN (17:15)
[2017-12-21] MEDS ORDERED: DO NOT ADMINISTER ANTICOAGULANTS PRN (17:15)
[2017-12-21] MEDS ORDERED: NO SYSTEM NARCOTICS PRN (17:15)
--- NOTE | 2017-12-21 19:11 | PD.OB.DELI ---
Weeks gestation: 40 Medical induction of labor?: Yes Artificial rupture of membrane: Yes Anesthesia: Epidural Episiotomy: None Vaginal Delivery: Normal, Spontaneous Presentation: Occiput anterior Nuchal Cord: None Shoulder Dystocia: Suprapubic pressure given, Elijah maneuver done, Other ( delivery of posterior arm -- total shoulder dystocia 6 seconds) Infant: Male Delivery date: December 21, 2017 Delivery time: 18:54 One Minute : 8 Five Minute : 9 Weight: pending Placenta: Spontaneous delivery, Intact, 3 vessel cord Laceration: No lacerations Estimated blood loss: 100cc Antelmo Marcelo MD December 21, 2017 19:11
[2017-12-21] MEDS ORDERED: ONDANSETRON ODT 4 MG TAB PO PRN (19:15)
[2017-12-21] MEDS ORDERED: BENZOCAINE 20% TOPICAL SPRAY 60 ML CAN TOPICAL PRN (19:15)
[2017-12-21] MEDS ORDERED: SODIUM CHLORIDE 0.9% FLUSH 10 ML FLUSH IV FLUSH PRN (19:15)
[2017-12-21] MEDS ORDERED: WITCH HAZEL 50%/GLYCERIN 12.5% 40 PAD JAR TOPICAL PRN (19:15)
[2017-12-21] MEDS ORDERED: ALUMINUM/MAGNESIUM/SIMETH 30 ML CUP PO PRN (19:15)
[2017-12-21] MEDS ORDERED: DOCUSATE SODIUM 50 MG/SENNA 8.6 MG TAB PO PRN (19:15)
[2017-12-21] MEDS ORDERED: OXYTOCIN 30 UNITS-500ML PREMIX 500 ML IV SCH (19:15)
[2017-12-21] MEDS ORDERED: ZOLPIDEM TARTRATE 5 MG TAB PO PRN (21:00)
[2017-12-22] MEDS: ACETAMINOPHEN 325 MG TAB PO PRN ×3 (02:24→16:55)
[2017-12-22] MEDS: IBUPROFEN 800 MG TAB PO PRN ×2 (02:24→16:54)
[2017-12-22 08:30] VITALS: BP 98/69; PULSE 63; RESP 20; TEMP 98; O2SAT 98
--- NOTE | 2017-12-22 08:47 | HHI.OB ---
Subjective Post Day: 1 Remarks Patient seen and examined this morning. AFVSS overnight. day #1. Patient states her pain is well controlled. Decreased lochia. Denies dysuria. No breast tenderness. Appetite good. No nausea or vomiting. Ambulating well without reported issues. Denies fevers or chills, chest pain, calf pain, shortness of breath, or cough. She otherwise has no other complaints or concerns this morning. Objective Vitals/I&O Vital Signs Date Time Temp Pulse Resp B/P (MAP) Pulse Ox O2 Delivery O2 Flow Rate FiO2 12/22/17 08:30 63 20 98/69 (79) 98 12/22/17 08:30 98.0 12/21/17 21:41 97.9 76 18 113/69 (84) 12/21/17 21:08 60 128/94 (105) 12/21/17 20:35 18 12/21/17 20:30 90 118/83 (95) 12/21/17 20:15 70 124/80 (95) 12/21/17 20:01 56 113/77 (89) 12/21/17 20:00 18 12/21/17 19:56 56 112/66 (81) 12/21/17 19:45 97.7 18 12/21/17 19:45 83 12/21/17 19:31 73 114/76 (89) 12/21/17 19:23 18 12/21/17 19:16 89 128/71 (90) 12/21/17 19:01 70 108/67 (81) 12/21/17 18:45 79 124/87 (99) 12/21/17 18:30 85 111/69 (83) 12/21/17 18:15 82 119/75 (90) 12/21/17 18:00 85 98/74 (82) 12/21/17 17:59 18 12/21/17 17:45 92 107/66 (80) 12/21/17 17:15 104 108/74 (85) 12/21/17 17:05 76 95/47 (63) 12/21/17 17:01 118 99/81 (87) 12/21/17 16:56 83 94/57 (69) 12/21/17 16:51 82 110/60 (77) 5/17/18 16:46 17 /17/18 16:45 86 17/18 16:45 67 127/68 (87) 12/21/18 16:43 17 17/18 16:41 74 129/63 (85) 12/21/18 16:40 72 17/18 16:39 71 121/81 (94) 17/18 16:38 67 127/71 (89) 18 16:36 140 74/45 (55) 18 16:35 70 17/18 16:30 96 17/18 16:30 91 138/87 (104) 12/21/18 16:30 18 17/18 16:26 89 143/76 (98) 18 16:25 82 17/18 16:23 67 138/92 (107) 18 16:20 77 18 16:15 18 18 16:15 74 18 16:10 80 18 16:08 70 138/72 (94) 18 15:32 97.7 18 12/21/18 15:31 46 17/18 15:31 138/98 (111) 18 15:01 65 123/72 (89) 18 14:31 72 112/77 (89) 18 14:07 18 12/21/18 14:00 67 122/90 (101) 18 13:58 18 12/21/18 13:31 81 116/93 (101) 18 13:15 18 12/21/18 13:00 74 114/83 (93) 18 12:35 18 17/18 12:35 97.5 17/18 12:30 69 114/82 (93) 18 12:15 18 12/21/18 12:01 58 120/73 (89) 12/21/18 11:45 18 17/18 11:31 75 115/72 (86) 12/21/18 11:15 18 17/18 11:00 60 109/70 (83) 18 10:55 18 17/18 10:48 70 114/77 (89) Objective Remarks GENERAL: Well-nourished, well-developed patient. CARDIOVASCULAR: Regular rate and rhythm without murmurs, gallops, or rubs. RESPIRATORY: Breath sounds equal bilaterally. No accessory muscle use. ABDOMEN/GI: Abdomen soft, non-tender. Fundus: Firm, non-tender at umbilicus. GENITOURINARY: Light to moderate bleeding. EXTREMITIES: No cyanosis or edema, non-tender, without signs of DVT. Medications and IVs Current Medications Medications (Trade) Dose Ordered Sig/Gretchen Route Start Time Stop Time Status Last Admin Lactated Ringer's 1,000 ml @ 125 mls/hr Q8H IV 12/21/17 10:01 12/21/17 18:01 Lactated Ringer's 1,000 ml @ 3,000 mls/hr Q20M PRN IV 12/21/17 10:01 Sodium Chloride 1,000 ml @ 100 mls/hr Q10H PRN IV 12/21/17 10:21 (Xylocaine 1% Inj (50 ml)) 0.1 ml UNSCH X1 PRN I-DERMAL 12/21/17 10:15 12/24/17 10:14 (Bicitra Liq) 30 ml OFF [employer] REPRESENTATIVE PO 12/21/17 10:15 12/25/17 10:14 (fentaNYL INJ) 50 mcg Q1H PRN IV PUSH 12/21/17 10:15 (fentaNYL INJ) 100 mcg Q1H PRN IV PUSH 12/21/17 10:15 (Xylocaine 1% Inj (50 ml)) 10 ml UNSCH X1 PRN INFIL 12/21/17 10:15 12/23/17 10:14 (Muri-Lube Oil) 10 ml UNSCH PRN TOPICAL 12/21/17 10:15 Oxytocin 500 ml @ 0 mls/hr TITRATE PRN IV 12/21/17 10:15 12/21/17 10:15 ([facility] [place] Nursing Information) No systemic narcotics to be given except... UNSCH PRN .XX 12/21/17 17:15 12/22/17 17:14 ([facility] [place] Nursing Information) DO NOT ADMINISTER ANY ANTICOAGUL... UNSCH PRN .XX 12/21/17 17:15 12/22/17 17:14 Fentanyl/ Bupivacaine HCl 100 ml @ 0 mls/hr TITRATE PRN EPIDURAL 12/21/17 17:15 (ePHEDrine/NS 25 MG/5 ML SYR) 10 mg UNSCH PRN IV PUSH 12/21/17 17:15 12/22/17 17:14 (NS Flush) 2 ml UNSCH PRN IV FLUSH 12/21/17 19:15 (Tylenol) 650 mg Q4H PRN PO 12/21/17 19:15 12/22/17 02:24 (Motrin) 800 mg Q8H PRN PO 12/21/17 19:15 12/22/17 02:24 (Americaine 20% Top Spr) 1 spray Q4H PRN TOPICAL 12/21/17 19:15 12/22/17 02:09 (Tucks Pads) 1 applic QID PRN TOPICAL 12/21/17 19:15 12/22/17 02:09 (Lorena-Colace) 2 tab Q12H PRN PO 12/21/17 19:15 (Ambien) 5 mg HS PRN PO 12/21/17 21:00 (Mag-Al Plus Susp Liq) 15 ml Q8H PRN PO 12/21/17 19:15 (Zofran Odt) 4 mg Q6H PRN PO 12/21/17 19:15 Assessment/Plan Problem List: (1) care following vaginal delivery ICD Codes: Z39.2 - Encounter for routine follow-up Assessment and Plan 27 year old now PPD#1. 1. Care - AFVSS - Encouraged OOB, as tolerated - Motrin prn pain - Advised pelvic rest x 6 weeks - Contraception: Discussed with patient this morning, patient desiring Depo- Provera - Will f/u with OB provider within 6 weeks [facility] OB hospitalist Discharge Planning Anticipate discharge home today or tomorrow pending stable clinical course Wyatt Abarca MD R2 December 22, 2017 08:47
[2017-12-22] MEDS ORDERED: PERI PO (09:17)
[2017-12-22] MEDS ORDERED: IBUP1TAB7 PO (09:17)
[2017-12-22 20:29] VITALS: BP 104/69; PULSE 55; RESP 18; TEMP 98.2
[2017-12-23 08:00] VITALS: BP 109/64; PULSE 20; PULSE 71; RESP 20; TEMP 97.9; O2SAT 97
[2017-12-23] MEDS ORDERED: medroxyPROGESTERone ACETATE SUSP 150 MG/ML SYRINGE IM ONE (08:30)
--- NOTE | 2017-12-23 08:46 | HHI.OB ---
Subjective Post Day: 2 Remarks Patient seen and examined this morning. AFVSS overnight. day #2. Patient states her pain is well controlled. Decreased lochia. Denies dysuria. No breast tenderness. Appetite good. No nausea or vomiting. Ambulating well. Denies fevers or chills, chest pain, calf pain, shortness of breath, cough. She otherwise has no complaints or concerns this morning. Objective Vitals/I&O Vital Signs Date Time Temp Pulse Resp B/P (MAP) Pulse Ox O2 Delivery O2 Flow Rate FiO2 12/23/17 08:00 71 12/23/17 08:00 97.9 20 20 109/64 (79) 97 12/22/17 20:29 98.2 55 18 104/69 (81) Objective Remarks GENERAL: Well-nourished, well-developed patient. CARDIOVASCULAR: Regular rate and rhythm without murmurs, gallops, or rubs. RESPIRATORY: Breath sounds equal bilaterally. No accessory muscle use. ABDOMEN/GI: Abdomen soft, non-tender. Fundus: Firm, non-tender at umbilicus. GENITOURINARY: Light to moderate bleeding. EXTREMITIES: No cyanosis or edema, non-tender, without signs of DVT. Medications and IVs Current Medications Medications (Trade) Dose Ordered Sig/Gretchen Route Start Time Stop Time Status Last Admin Lactated Ringer's 1,000 ml @ 125 mls/hr Q8H IV 12/21/17 10:01 12/21/17 18:01 Lactated Ringer's 1,000 ml @ 3,000 mls/hr Q20M PRN IV 12/21/17 10:01 Sodium Chloride 1,000 ml @ 100 mls/hr Q10H PRN IV 12/21/17 10:21 (Xylocaine 1% Inj (50 ml)) 0.1 ml UNSCH X1 PRN I-DERMAL 12/21/17 10:15 12/24/17 10:14 (Bicitra Liq) 30 ml CONE CHOCOLATE DIPPER PO 12/21/17 10:15 12/25/17 10:14 (fentaNYL INJ) 50 mcg Q1H PRN IV PUSH 12/21/17 10:15 (fentaNYL INJ) 100 mcg Q1H PRN IV PUSH 12/21/17 10:15 (Xylocaine 1% Inj (50 ml)) 10 ml UNSCH X1 PRN INFIL 12/21/17 10:15 12/23/17 10:14 (Muri-Lube Oil) 10 ml UNSCH PRN TOPICAL 12/21/17 10:15 Oxytocin 500 ml @ 0 mls/hr TITRATE PRN IV 12/21/17 10:15 12/21/17 10:15 Fentanyl/ Bupivacaine HCl 100 ml @ 0 mls/hr TITRATE PRN EPIDURAL 12/21/17 17:15 (NS Flush) 2 ml UNSCH PRN IV FLUSH 12/21/17 19:15 (Tylenol) 650 mg Q4H PRN PO 12/21/17 19:15 12/22/17 16:55 (Motrin) 800 mg Q8H PRN PO 12/21/17 19:15 12/22/17 16:54 (Americaine 20% Top Spr) 1 spray Q4H PRN TOPICAL 12/21/17 19:15 12/22/17 02:09 (Tucks Pads) 1 applic QID PRN TOPICAL 12/21/17 19:15 12/22/17 02:09 (Lorena-Colace) 2 tab Q12H PRN PO 12/21/17 19:15 (Ambien) 5 mg HS PRN PO 12/21/17 21:00 (Mag-Al Plus Susp Liq) 15 ml Q8H PRN PO 12/21/17 19:15 (Zofran Odt) 4 mg Q6H PRN PO 12/21/17 19:15 Assessment/Plan Problem List: (1) care following vaginal delivery ICD Codes: Z39.2 - Encounter for routine follow-up Assessment and Plan 27 year old now PPD#2. 1. Care - AFVSS - Encouraged OOB, as tolerated - Motrin prn pain - Advised pelvic rest x 6 weeks - Contraception: Discussed with patient this morning, patient desiring Depo- Provera - Will f/u with OB provider within 6 weeks marianne Box Discharge Planning Stable for discharge home today Wyatt Abarca MD R2 December 23, 2017 08:46
[2017-12-23] MEDS: ACETAMINOPHEN 325 MG TAB PO PRN (12:31)
[2017-12-23] MEDS: IBUPROFEN 800 MG TAB PO PRN (12:31)
== END 2017-12-23 13:00 | disposition home or self-care (01) | DRG 775 ==
LOC: H2EA 08:08 → H1EA 21:28
PROVIDERS: ADMIT Obstetrics & Gynecology; ATTEND Obstetrics & Gynecology
PROC: 10E0XZZ Delivery of Products of Conception, External Approach (ICD-10-PCS; principal; 2017-12-21)
PROC: 3E033VJ Introduction of Other Hormone into Peripheral Vein, Percutaneous Approach (ICD-10-PCS; 2017-12-21)
PROC: 10907ZC Drainage of Amniotic Fluid, Therapeutic from Products of Conception, Via Natural or Artificial Opening (ICD-10-PCS; 2017-12-21)
DX: O66.0 Obstructed labor due to shoulder dystocia (principal); O99.334 Smoking (tobacco) complicating childbirth; F17.210 Nicotine dependence, cigarettes, uncomplicated; Z3A.40 40 weeks gestation of pregnancy; Z37.0 Single live birth
CPT/HCPCS: 59025; 80307; 81001; 85025; 87086; J1050; J2590; J7120